=== PATIENT | male | born 1960 | race Caucasian/White ===

== ENCOUNTER 2021-11-07 08:03 | Outpatient (CLI) | payer OTHER, SELFPAY ==
[2021-11-07 14:20] LABS: Creatinine Urine 148.5 mg/dL
[2021-11-07 14:22] LABS: Microalbumin Creatinine Ratio 0 mg/g (0-30); Microalbumin Urine 1 mg/dL
[2021-11-07 18:02] LABS: PSA Screen* 0.81 ng/mL (0.10-4.00)
== END 2021-11-07 08:04 | disposition home or self-care (01) ==
PROVIDERS: PCP Family Medicine; Visit Provider Family Medicine
DX: E11.9 Type 2 diabetes mellitus without complications (principal); E78.5 Hyperlipidemia, unspecified; I10 Essential (primary) hypertension; Z12.5 Encounter for screening for malignant neoplasm of prostate
CPT/HCPCS: 80048; 80061; 82043; 82570; 84153

== ENCOUNTER 2022-12-13 12:02 | Outpatient (CLI) | payer OTHER, SELFPAY | END 2022-12-13 12:03 | disposition home or self-care (01) | PROVIDERS: PCP Family Medicine; Visit Provider Family Medicine | DX: I10 Essential (primary) hypertension (principal); E11.9 Type 2 diabetes mellitus without complications; E78.2 Mixed hyperlipidemia; M10.9 Gout, unspecified; N40.0 Benign prostatic hyperplasia without lower urinary tract symptoms; Z13.9 Encounter for screening, unspecified | CPT/HCPCS: 80048; 80061; 84153; 84460; 85025 ==

== ENCOUNTER 2023-11-18 09:11 | Outpatient (CLI) | payer BC, SELFPAY | END 2023-11-18 09:12 | disposition home or self-care (01) | PROVIDERS: PCP Family Medicine; Visit Provider Family Medicine | DX: E78.2 Mixed hyperlipidemia (principal); I10 Essential (primary) hypertension; E11.9 Type 2 diabetes mellitus without complications; Z79.84 Long term (current) use of oral hypoglycemic drugs | CPT/HCPCS: 80048; 80061; 84460 ==

== ENCOUNTER 2023-12-23 06:37 | Outpatient (CLI) | payer BC, SELFPAY ==
--- NOTE | 2023-12-23 08:19 | W.ANESCHARGE ---
Anesthesia Charges Start Date/Time Anesthesia Start Date: 12/23/23 Anesthesia Start Time: 07:41 Stop Date/Time Anesthesia Stop Date: 12/23/23 Anesthesia Stop Time: 08:12
--- NOTE | 2023-12-23 08:59 | W.ANESCHARGE ---
Anesthesia Charges Start Date/Time Anesthesia Start Date: 12/23/23 Anesthesia Start Time: 07:41 Stop Date/Time Anesthesia Stop Date: 12/23/23 Anesthesia Stop Time: 08:12
== END 2023-12-23 06:38 | disposition home or self-care (01) ==
LOC: OP CLINIC 06:38
PROVIDERS: PCP Family Medicine; Visit Provider Surgery
DX: Z85.038 Personal history of other malignant neoplasm of large intestine (principal); Z98.0 Intestinal bypass and anastomosis status
CPT/HCPCS: 00811; 00812; 45378; J2704